=== PATIENT | female | born 1995 | race Two or more races ===

== ENCOUNTER 2019-12-25 06:43 | Emergency (ER) | payer MEDICAID ==
[~2019-12-25] VITALS: Ht 160 cm; Wt 82.6 kg
[2019-12-25 06:46] VITALS: BP 125/87
== END 2019-12-25 07:44 | disposition home or self-care (01) ==
LOC: ER 06:43
DX: S30.861A Insect bite (nonvenomous) of abdominal wall, initial encounter (principal); W57.XXXA Bitten or stung by nonvenomous insect and other nonvenomous arthropods, initial encounter; Y93.89 Activity, other specified; Y92.89 Other specified places as the place of occurrence of the external cause; Y99.8 Other external cause status